=== PATIENT | male | born 1990 | race Caucasian/White ===

== ENCOUNTER 2019-05-10 00:36 | Emergency (ER) | payer BC ==
[~2019-05-10] VITALS: Ht 188 cm; Wt 125.0 kg
[2019-05-10 00:47] VITALS: BP 109/55; TEMP 98.2
[2019-05-10 01:28] LABS: MEAN CELL VOLUME 82 fl (80.0-100.0); MEAN CORPUSCULAR HEMOGLOBIN 27 pg (27.0-31.0); MEAN CORPUSCULAR HGB CONC 32 g/dl (33.0-37.0); MEAN PLATELET VOLUME 10.1 fl (7.4-10.4); PLATELET COUNT 357 K/mm3 (130-400); REDCELL DISTRIBUTION WIDTH-CV 12.7 % (11.5-14.5)
[2019-05-10 01:30] LABS: HEMATOCRIT 55.6 % (42.0-52.0)
[2019-05-10 01:37] LABS: ALBUMIN 5.4 gm/dL (3.5-5.0); BILIRUBIN,TOTAL 0.7 mg/dL (0.0-1.0); CALCIUM 10.3 mg/dL (8.4-10.2); CREATININE, serum 1.51 (0.66-1.25); POTASSIUM 4.2 mmol/L (3.4-5.0); TOTAL PROTEIN 9.6 gm/dL (6.4-8.2)
[2019-05-10 02:24] LABS: BAND 10 % (0-10); LYMPHOCYTE 9 % (20.0-51.0); MICROCYTOSIS 1+; NEUTROPHILS 75 % (42.0-75.2); PLATELET ESTIMATE NORMAL (NORMAL)
[2019-05-10 05:11] VITALS: PULSE 117
[2019-05-10 05:43] LABS: COLLECTION METHOD CLEAN CATCH
[2019-05-10 05:51] LABS: MUCOUS Present /lpf; PH 5 (5-8); SQUAMOUS EPITHELIAL 0-2 /hpf; URINE APPEARANCE Hazy; URINE BACTERIA Rare /hpf; URINE BILIRUBIN Negative (NEGATIVE); URINE BLOOD Negative (NEGATIVE); URINE COLOR Amber; URINE GLUCOSE Negative (NEGATIVE); URINE KETONE Negative (NEGATIVE); URINE LEUKOCYTE ESTERASE Negative (NEGATIVE); URINE NITRATE Negative (NEGATIVE); URINE PROTEIN(semi-quant) 2+ (NEGATIVE); URINE UROBILINOGEN Negative (NEGATIVE)
== END 2019-05-10 05:00 | disposition home or self-care (01) ==
LOC: COL.ER 00:36
PROVIDERS: Emergency Medicine
DX: K52.9 Noninfective gastroenteritis and colitis, unspecified (principal); R91.1 Solitary pulmonary nodule; D72.829 Elevated white blood cell count, unspecified
CPT/HCPCS: J2765; J3010; J7030; Q9967